=== PATIENT | male | born 1990 | race Caucasian/White ===

== ENCOUNTER 2023-10-06 20:37 | Inpatient (IN) | payer OTHER, SELFPAY ==
[2023-10-06 20:40] VITALS: BP 144/92; PULSE 81; RESP 16; TEMP 36.7; O2SAT 98; BMI 24.3
--- NOTE | 2023-10-06 20:54 | XRR_ITS ---
PROCEDURE INFORMATION: Exam: XR Chest Exam date and time: 10/06/2023 9:01 PM Age: 33 years old Clinical indication: Shortness of breath; Additional info: PT overdosed and drank 15-20 beers TECHNIQUE: Imaging protocol: Radiologic exam of the chest. Views: 1 view. COMPARISON: No relevant prior studies available. FINDINGS: Lungs: Unremarkable. No consolidation. Pleural spaces: Unremarkable. No pleural effusion. No pneumothorax. Heart/Mediastinum: Unremarkable. No cardiomegaly. Bones/joints: Unremarkable. XR/XR chest 1V portable [id number] IMPRESSION: No acute findings.
[2023-10-06 21:00] VITALS: BP 118/85; PULSE 80; RESP 19; O2SAT 97
--- NOTE | 2023-10-06 21:00 | ED.C_ITS ---
HPI - Psych 2 General: Chief Complaint: ER Hold Stated Complaint: overdose Time Seen by Provider: 10/06/23 20:47 History of Present Illness: Patient presents to the ER via [facility] with complaints of taking 20 tabs of 5 mg Valium at approximately 1800. Patient says he also drank about 15-20 beers tonight. Patient says he drinks that every day and does not usually phase him. he does state I just wanted to forget about my life being turned upside down . Patient does appear sedate but is alert oriented and can answer questions. Poison control was consulted. His parents will be writing an affidavit to get him 96-hour held they said he tried this approximately week ago as well. They would prefer him to go to [facility] if possible. Review of Systems 2 General: Reports: 10 or more systems reviewed and unremarkable except in HPI and below PFSH ED 2 PFSH: Medical History (Updated 10/06/23 @ 23:14 by Warren Avelar MD) No pertinent past medical history Surgical History (Updated 10/06/23 @ 23:14 by Warren Avelar MD) No pertinent past surgical history Physical Exam 2 Const: COMMON NORMALS: no acute distress, average body habitus, patient oriented x3, no limitations, healthy appearing, alert and well nourished HENMT: COMMON NORMALS: normocephalic, atraumatic, hearing grossly normal bilaterally, external ears normal, Normal external nose present, moist oral mucous membranes and oropharynx normal HEAD & SCALP: normocephalic and atraumatic NOSE: Normal external nose present EXTERNAL EAR: Yes external ears normal Neck/C-Spine: COMMON NORMALS: no JVD Chest: COMMONS NORMALS: normal inspection of the chest and normal palpation of entire chest wall Resp: COMMON NORMALS: normal respiratory effort, No retractions, No use of accessory muscles and clear to auscultation bilaterally AUSCULTATION: clear to auscultation bilaterally Cardio: COMMON NORMALS: no JVD, regular rate, regular rhythm, S1 normal heart sound present, S2 normal heart sound present, No gallops present (Cardio), No clicks present (Cardio), No murmurs present (Cardio) and No rub (Cardio) R ATE: regular rate RHYTHM: regular rhythm HEART SOUNDS: S1 normal heart sound present and S2 normal heart sound present GI: COMMON NORMALS: Normal to inspection, nondistended, normoactive bowel sounds present, Soft to palpation, non-tender, No hepatosplenomegaly present and no masses PALPATION: Yes Soft to palpation and Yes No hepatosplenomegaly present Neuro: COMMON NORMALS: patient oriented x3 SENSORIUM/ORIENTATION: Yes alert Course 2 Vital Signs: Vital signs: Vital Signs Temperature 98.1 F 10/06/23 20:40 Pulse Rate 69 10/07/23 07:41 Respiratory Rate 15 10/07/23 07:41 Blood Pressure 105/71 10/07/23 05:04 Pulse Oximetry 96 10/07/23 07:41 Oxygen Delivery Me thod Room Air 10/07/23 07:41 MDM - Psych Medical Decision Making Poison control was called. Patient will be worked up in a standard psychiatric fashion. We do not have any ICU beds at this facility. We will try to transfer him to [facility] in [place]. [facility] it was called they do not have any beds, we will try [facility]. When she called back with hospitalist who accepted for telemetry. They will call us back with bed assignment but it may not be tonight. After moving patients around here we decided to keep the patient here in ICU Dr. Avelar notified and agreed Differential Diagnosis Likely suicidal ideation Medical Records I reviewed the patient's medical records. Lab Data I reviewed the patient's lab results. 10/06/23 20:55 10/06/23 20:55 Radiology Impressions Chest X-Ray 10/06/23 20:54 IMPRESSION: No acute findings. Laboratory Results WBC 7.16 10^3/uL (3.29-11.43) 10/06/23 20:55 RBC 5.02 10^6/uL (3.85-5.65) 10/06/23 20:55 Hgb 16.30 g/dL (11.27-16.99) 10/06/23 20:55 Hct 45.7 % (37-53) 10/06/23 20:55 MCV 91.0 fl (82-101) 10/06/23 20:55 MCH 32.5 pg (27-33) 10/06/23 20:55 MCHC 35.7 g/dL (30-55) 10/06/23 20:55 RDW 12.2 % (12.1-15.1) 10/06/23 20:55 Plt Count 232 10^3/cmm (157-399) 10/06/23 20:55 MPV 10.7 fL (7.4-10.4) H 10/06/23 20:55 Neut % (Auto) 58.8 % 10/06/23 20:55 Lymph % (Auto) 33.8 % 10/06/23 20:55 [place] % (Auto) 4.5 % 10/06/23 20:55 Eos % (Auto) 2.1 % 10/06/23 20:55 Baso % (Auto) 0.7 % 10/06/23 20:55 Neut # (Auto) 4.21 10^3/uL (1.8-7.7) 10/06/23 20:55 Lymph # (Auto) 2.4 10^3/uL (0.8-4.8) 10/06/23 20:55 [place] # (Auto) 0.3 10^3/uL (0.2-0.9) 10/06/23 20:55 Eos # (Auto) 0.2 10^3/uL (0.0-0.8) 10/06/23 20:55 Baso # (Auto) 0.1 10^3/uL (0.0-0.1) 10/06/23 20: Nucleated RBC % (auto) 0 % 10/06/23 20: Nucleated RBCs # 0.0 /100WBC 10/06/23 20:55 PT 13.20 SECONDS (12.1-14.9) 10/06/23 20:55 INR 0.98 (0.8-1.2) 10/06/23 20:55 Sodium 141 mmol/L (136-145) 10/06/23 20:55 Potassium 3.9 mmol/L (3.5-5.1) 10/06/23 20:55 Chloride 104 mmol/L (98-107) 10/06/23 20:55 Carbon Dioxide 24 mmol/L (22-29) 10/06/23 20:55 Anion Gap 16.9 (5-19) 10/06/23 20:55 BUN 13 mg/dL (6-20) 10/06/23 20:55 Creatinine 0.8 mg/dL (0.7-1.2) 10/06/23 20:55 GFR Calculation 112.8 mL/min (90-130) 10/06/23 20:55 Glucose 83 mg/dL (65-115) 10/06/23 20:55 Calculated Osmolality 291 mOsm/kg (285-295) 10/06/23 20:55 Calcium 8.8 mg/dL (8.5-10.5) 10/06/23 20:55 Total Bilirubin 0.5 mg/dL (0.15-1.2) 10/06/23 20:55 AST 22 U/L (0-40) 10/06/23 20:55 ALT 46 U/L (0-41) H 10/06/23 20:55 Alkaline Phosphatase 115 U/L (40-130) 10/06/23 20:55 Total Protein 7.1 g/dL (6.6-8.7) 10/06/23 20: Albumin 4.5 g/dL (3.5-5.2) 10/06/23 20: Globulin 2.6 g/dL (1.3-4.6) 10/06/23 20:55 TSH 2.03 uIU/mL (0.27-4.20) 10/06/23 20:55 Urine Color Light yellow (Yellow) 10/06/23 20:55 Urine Appearance Clear (CLEAR) 10/06/23 20:55 Urine pH 5 (5-7) 10/06/23 20:55 Ur Specific [place] 1.010 (1.005-1.030) 10/06/23 20:55 Urine Protein Neg (Negative) 10/06/23 20:55 Urine Glucose (UA) Norm (Normal) 10/06/23 20:55 Urine Ketones Negative (Negative) 10/06/23 20:55 Urine Blood Neg (Negative) 10/06/23 20:55 Urine Nitrate Negative (Negative) 10/06/23 20:55 Urine Bilirubin Neg (Negative) 10/06/23 20: Urine Urobilinogen Norm mg/dL (Negative) 10/06/23 20:55 Ur Leukocyte Esterase Negative (Negative) 10/06/23 20:55 Salicylates < 0.3 mg/dL (3-10) L 10/06/23 20:55 Urine Opiates Screen Negative ng/mL (Negative) 10/06/23 20:55 Acetaminophen < 5.0 ug/mL (10-30) L 10/06/23 20:55 Ur Barbiturates Screen Negative ng/mL (Negative) 10/06/23 20:55 Ur Phencyclidine Scrn Negative ng/mL (Negative) 10/06/23 20:55 Ur Amphetamines Screen Negative ng/mL (Negative) 10/06/23 20:55 U Benzodiazepines Scrn Positive ng/mL (Negative) H 10/06/23 20:55 Urine Cocaine Screen Negative ng/mL (Negative) 10/06/23 20:55 U Marijuana (THC) Screen Negative ng/mL (Negative) 10/06/23 20:55 Ethyl Alcohol 62 mg/dL (0-10) H 10/06/23 20:55 All radiology interpretation(s) finalized by discharge Discharge Plan Discharge Patient Disposition: Xfer Short-Term Hosp Clinical Impression: Benzodiazepine (tranquilizer) overdose, Suicidal ideation Condition: Stable Coding Level of Care Code ED [employer]
--- NOTE | 2023-10-06 21:04 | PC.NURSE ---
Dr Smith spoke with poison control regarding patient status.
[2023-10-06 21:06] LABS: Add Urine Microscopic? NO; Charge for UA Resulting for Rev
[2023-10-06 21:07] LABS: Basophils # 0.1 10^3/uL (0.0-0.1); Basophils % 0.7 %; Eosinophils # 0.2 10^3/uL (0.0-0.8); Eosinophils % 2.1 %; Hematocrit 45.7 % (37-53); Lymphocytes # 2.4 10^3/uL (0.8-4.8); Lymphocytes % 33.8 %; Mean Corpuscular HGB Conc 35.7 g/dL (30-55); Mean Corpuscular Hemoglobin 32.5 pg (27-33); Mean Platelet Volume 10.7 fL (7.4-10.4); Monocytes # 0.3 10^3/uL (0.2-0.9); Monocytes % 4.5 %; Neutrophils # 4.21 10^3/uL (1.8-7.7); Neutrophils % 58.8 %; Nucleated Red Blood Cells % 0 %; Platelet Count 232 10^3/cmm (157-399); Red Blood Count 5.02 10^6/uL (3.85-5.65); Red Cell Distribution Width 12.2 % (12.1-15.1); White Blood Count 7.16 10^3/uL (3.29-11.43)
[2023-10-06 21:15] LABS: Bilirubin Urine Neg (Negative); Blood Urine Neg (Negative); Glucose Urine UA Norm (Normal); INR 0.98 (0.8-1.2); Ketones Urine Negative (Negative); Leukocyte Esterase Urine Negative (Negative); Nitrate Urine Negative (Negative); Protein Urine Neg (Negative); Urine Appearance Clear (CLEAR); Urine Color Light yellow (Yellow); Urobilinogen Urine Norm (Negative); pH Urine 5 (5-7)
[2023-10-06 21:22] LABS: Amphetamines Screen Urine Negative (Negative); Barbiturates Screen Urine Negative (Negative); Benzodiazepines Screen Urine Positive (Negative); Cocaine Screen Urine Negative (Negative); Opiate Screen Urine Negative (Negative); PCP Screen Urine Negative (Negative); THC Screen Urine Negative (Negative)
[2023-10-06 21:31] LABS: Alanine Aminotransferase 46 U/L (0-41); Albumin Level 4.5 g/dL (3.5-5.2); Alcohol Level 62 mg/dL (0-10); Alkaline Phosphatase 115 U/L (40-130); Anion Gap 16.9 (5-19); Aspartate Amino Transferase 22 U/L (0-40); Blood Urea Nitrogen 13 mg/dL (6-20); Calcium 8.8 mg/dL (8.5-10.5); Carbon Dioxide 24 mmol/L (22-29); Chloride 104 mmol/L (98-107); Creatinine Clr Calc Pharmacy 141.2542; Globulin 2.6 g/dL (1.3-4.6); Glomerular Filtration Rate 112.8 mL/min (90-130); Glucose 83 mg/dL (65-115); Osmolality Calculated 291 mOsm/kg (285-295); Potassium 3.9 mmol/L (3.5-5.1); Sodium 141 mmol/L (136-145); Thyroid Stimulating Hormone 2.03 uIU/mL (0.27-4.20); Total Bilirubin 0.5 mg/dL (0.15-1.2); Total Protein 7.1 g/dL (6.6-8.7)
[2023-10-06 21:32] LABS: Acetaminophen < 5.0 ug/mL (10-30); Salicylate < 0.3 mg/dL (3-10)
[2023-10-06 22:30] VITALS: BP 135/77; PULSE 84; O2SAT 19
[2023-10-06 22:45] VITALS: BP 131/65; PULSE 80; RESP 22; O2SAT 96
[2023-10-06 22:52] LABS: ABG PH Result 7.36 (7.35-7.45); Alveolar-Arterial Oxygen Gradi 2.6 mmHg (5-10); Arterial Blood Gas Hematocrit 50.5 % (42-52); Base Excess ABG -0.5 mmol/L (-2.0-2.0); Blood Gas Sample Site Brachial, left; Blood Gas Sample Type Arterial; Carboxyhemoglobin 1.1 %THgb (0.4-20.1); HCO3 ABG 25.4 mmol/L (22-26); HGB O2 Sat 94.1 % (95-100); Ionized Calcium Level - ABG 1.2 mmol/L (1.1-1.4); Methemoglobin 0.6 % (0.4-1.5); Oxygen Saturation ABG 95.7; PO2 ABG 74.6 mmHg (80.0-100.0); PO2 FiO2 Ratio Arterial Blood 0; Potassium Level - ABG 3.8 mmol/L (3.5-5.0); Total Hemoglobin 16.5 g/dL (14-18)
--- NOTE | 2023-10-06 22:57 | PC.NURSE ---
Pt was ok with me speaking to his mom and dad. Parents were informed that pt could not have visitors until tomorrow during normal NPU hours. Family is still insisting that pt is transferred to [facility]. family was informed that no beds are available at this time. family was also informed that pt would be going to ICU here and that it is a locked unit and he would have a PSA sit with him there also. they were also informed that the pt would be seeing a psychiatrist while here.
[2023-10-06 23:00] VITALS: PULSE 79; RESP 20; O2SAT 94
--- NOTE | 2023-10-06 23:08 | PC.NURSE ---
Spoke with Karen from Poison Control, and gave her update on patient's vitals, toxicology, and current status. Karen said she would call back later for another update.
--- NOTE | 2023-10-06 23:10 | P.HP_ITS ---
Providers/Chief Complaint 2 Primary Care Provider: Yoshi Sims DO Chief Complaint: overdose History of Present Illness Malik Lacy is a 33 year old male with history of depression, alcohol abuse presented to the hospital after taking 15 to 20 tablets of Valium 5 mg, patient is stating that there were a lot of people at home including his family and cousins, he was under a lot of stress and wanted to decrease his anxiety with taking Valium he is denying suicidal ideation at the time of evaluation however his parents spoke with the ER physician and told him that patient has been endorsing suicidal ideation for last 2 weeks, patient is stating that he is under a lot of stress which is because of his personal issues. He works full- time, does not smoke endorsing to drinking excessively stating that he could drink beer 10-20 night and then still go to work in the morning, sometimes he will drink 30 beers a day. He is stating it depends upon the gathering, company and level of stress. He denies hypertension cardiac history. At the time of evaluation he is going to the ICU for close supervision Currently he is hemodynamically stable with sinus rhythm blood pressure stable no QT prolongation He is awake and alert able to state above-mentioned HPI He is adamant that he is not suicidal he just wanted to add his stress in life by taking Valium. His alcohol level is 62, Dr. Lacy consulted Patient repeatedly stating that he is not alcoholic he can just drink 10-20 beers and still functioning appropriately Review of Systems 2 Const: Denies: fever(s) Eyes: Denies: change in vision ENMT: Denies: throat pain Card: Denies: chest pain Resp: Denies: dyspnea GI: Denies: abdominal pain : Denies: flank pain Musc: Denies: neck pain Skin/Breast: Denies: rash Neuro: Denies: headache(s) Psych: Reports: anxiety Medications/Allergies Home Medications Medication Instructions Recorded Confirmed Last Taken Type budesonide 90 mcg/actuation breath 2 inh inhalation BID 03/05/22 03/05/22 Unknown History activated powder inhaler (Pulmicort Flexhaler) diazepam 5 mg tablet 5 mg PO QAM PRN anxiety #30 tabs 09/26/23 09/26/23 Unknown Rx escitalopram oxalate 20 mg tablet 20 mg PO DAILY anxiety #30 tabs 09/26/23 09/26/23 Unknown Rx Allergies Allergy/AdvReac Type Severity Reaction Status Date / Time No Known Allergies Allergy Verified 10/06/23 20:50 PFSH Acute 2 PFSH: Medical History (Updated 10/06/23 @ 23:14 by Warren Avelar MD) No pertinent past medical history Surgical History (Updated 10/06/23 @ 23:14 by Warren Avelar MD) No pertinent past surgical history Vitals/I&O/Wt Last Vital Signs Temp 98.1 F 10/06/23 20:40 Pulse 79 10/06/23 23:00 Resp 20 H 10/06/23 23:00 BP 131/65 10/06/23 22:45 Pulse Ox 94 10/06/23 23:00 O2 Del Method Room Air 10/06/23 23:00 Weight last 48 hrs Weight 77.111 kg Physical Exam 2 Narrative: Patient is awake and alert GCS 15 Nonfocal neuroexam Erythematous conjunctiva Nonfocal neuroexam GCS 15 Hemodynamically stable Pleasant 43-year-old Good muscle bulk Thin lean male Data 10/06/23 20:55 10/06/23 20:55 A&P Assessment and plan (1) Anxiety: (2) Suicidal ideation: (3) Benzodiazepine (tranquilizer) overdose: Qualifiers: Encounter type: initial encounter Injury intent: intentional self-harm Qualified Code(s): T42.4X2A - Poisoning by benzodiazepines, intentional self- harm, initial encounter (4) Acute alcohol intoxication: Plan Overdose on Valium 15 to 20 tablets of 5 mg Valium Monitor in ICU Watch for QT prolongation Monitor for arrhythmia Keep electrolytes and check Check CPK Dr. Lacy consulted and notified Full code Cardiac diet Gentle IV fluid hydration Alcohol intoxication Will start CIWA protocol Full code Cardiac diet DVT prophylaxis Lovenox Attestations 2 Medical Necessity Statement*: More than 2 midnights anticipated for alcohol desiccation, suicidal, Diagnoses Anxiety F41.9 Suicidal ideation R45.851 Benzodiazepine (tranquilizer) overdose T42.4X2A Encounter type: initial encounter Injury intent: intentional self-harm Acute alcohol intoxication F10.929
--- NOTE | 2023-10-06 23:23 | PC.NURSE ---
[facility] Pt served with [facility] by this RN and security. Pt alert and oriented with some slurred speech. Pt mother and step father at bedside. Pt mother some what secretive in giving information to staff, pulling physician and nurses out of room to speak to them. Pt mother requested pt to be transferred to [facility] due to a recommendation from pt PCP. Upon serving pt with [facility], pt requested to stay at [facility] to be closer to home. Physician notified.
[2023-10-06 23:40] VITALS: BP 118/80; PULSE 80; O2SAT 94
[2023-10-07] VITALS (95 sets, daily range): BP systolic 83–138; BP diastolic 59–86; PULSE 54–88; RESP 9–26; TEMP 36.4–37.2; O2SAT 92–100; BMI 24.2
[2023-10-07] MEDS: enoxaparin 40 mg/0.4 mL Syringe SUBCUT (05:32)
[2023-10-07] MEDS: sodium chloride 0.9% 1,000 ML 75 ML IV (05:34)
[2023-10-07] MEDS: folic acid 1 mg Tablet PO (08:13)
[2023-10-07] MEDS: multivitamin therapeutic Tablet 1 TAB PO (08:13)
[2023-10-07] MEDS: thiamine 100 mg Tablet PO (08:13)
--- NOTE | 2023-10-07 14:21 | P.PN_ITS ---
Subjective 2 Subjective: - Patient was seen this morning ? He denies any active suicidal ideation, denies any suicidal thoughts, does report increased anxiety ? He denies taking diazepam pills in attempt to kill himself, he is not sure how many pills he took ? Denies any prior suicide attempts ? Denies any homicidal ideation, ? When asked him if he drink alcohol, he tells me that he typically has 6-12 beers potentially on a daily basis his last drink of alcohol was yesterday he had 6 beers, denies having a problem with alcohol denies blacking out denies a history of alcohol withdrawal Vitals/I&O/Wt Last Vital Signs Temp 98.1 F 10/06/23 20:40 Pulse 69 10/07/23 07:41 Resp 15 10/07/23 07:41 BP 105/71 10/07/23 05:04 Pulse Ox 96 10/07/23 07:41 O2 Del Method Room Air 10/07/23 07:41 10/06/23 10/07/23 10/07/23 22:59 06:59 14:59 Intake Total 0 / 0 Output Total 0 / 0 Balance 0 / 0 Weight last 48 hrs Weight 76.5 kg Weight 77.111 kg Physical Exam 2 Const: COMMON NORMALS: no acute distress and patient oriented x3 Resp: COMMON NORMALS: normal respiratory effort, No retractions, No use of accessory muscles and clear to auscultation bilaterally AUSCULTATION: clear to auscultation bilaterally Cardio: COMMON NORMALS: regular rate, regular rhythm, S1 normal heart sound present and S2 normal heart sound present RATE: regular rate RHYTHM: r egular rhythm HEART SOUNDS: S1 normal heart sound present and S2 normal heart sound present GI: COMMON NORMALS: Normal to inspection, nondistended, normoactive bowel sounds present and non-tender Extremity: COMMON NORMALS: no pedal edema Neuro: COMMON NORMALS: patient oriented x3, CN's II-XII intact bilaterally, moves all extremities and no focal motor deficits Psych: COMMON NORMALS: mental status grossly normal Data 10/06/23 20:55 10/06/23 20:55 A&P Assessment and plan (1) Anxiety: (2) Suicidal ideation: (3) Benzodiazepine (tranquilizer) overdose: Qualifiers: Encounter type: initial encounter Injury intent: intentional self-harm Qualified Code(s): T42.4X2A - Poisoning by benzodiazepines, intentional self- harm, initial encounter (4) Acute alcohol intoxication: Plan Overdose on Valium 15 to 20 tablets of 5 mg Valium Monitor in ICU Watch for QT prolongation Monitor for arrhythmia Keep electrolytes and check Check CPK Dr. Lacy consulted and notified Full code Cardiac diet Gentle IV fluid hydration Alcohol intoxication Will start CIWA protocol Full code Cardiac diet DVT prophylaxis Lovenox Plan for today monitor in ICU, monitor electrolytes, monitor mentation, plan on moving to neuropsychiatric unit tomorrow, spoke to Dr. Lacy, he does accept Attestations 2 Medical Necessity Statement*: Patient requires hospitalization for overdose of Valium, Diagnoses Anxiety F41.9 Suicidal ideation R45.851 Benzodiazepine (tranquilizer) overdose T42.4X2A Encounter type: initial encounter Injury intent: intentional self-harm Acute alcohol intoxication F10.929
--- NOTE | 2023-10-07 15:41 | PC.NURSE ---
patients belonging sent with mother at this time per her request to be cleaned patient agreed shirt and jeans in clothing bag
[2023-10-07] MEDS: ALPRAZolam 0.5 mg Tablet PO (20:33)
--- NOTE | 2023-10-07 20:35 | PC.NURSE ---
Spoke to Dr. Avelar about patient requesting something to help with sleep. Given orders for a one time dose of Xanax 0.5mg PO.
[2023-10-08] VITALS (30 sets, daily range): BP systolic 93–137; BP diastolic 57–78; PULSE 17–94; RESP 12–80; TEMP 36.6–37.1; O2SAT 92–98; BMI 26.4
[2023-10-08 04:53] LABS: Basophils % 0.5 %; Eosinophils # 0.2 10^3/uL (0.0-0.8); Eosinophils % 2.9 %; Hematocrit 43.7 % (37-53); Lymphocytes # 2.3 10^3/uL (0.8-4.8); Lymphocytes % 38.9 %; Mean Corpuscular Hemoglobin 32.6 pg (27-33); Mean Platelet Volume 10.7 fL (7.4-10.4); Monocytes # 0.3 10^3/uL (0.2-0.9); Monocytes % 4.4 %; Neutrophils # 3.14 10^3/uL (1.8-7.7); Neutrophils % 53.1 %; Nucleated Red Blood Cells % 0 %; Platelet Count 208 10^3/cmm (157-399); Red Cell Distribution Width 12.1 % (12.1-15.1); White Blood Count 5.91 10^3/uL (3.29-11.43)
[2023-10-08] MEDS: enoxaparin 40 mg/0.4 mL Syringe SUBCUT (05:03)
[2023-10-08 05:25] LABS: Alanine Aminotransferase 34 U/L (0-41); Albumin Level 3.8 g/dL (3.5-5.2); Alkaline Phosphatase 97 U/L (40-130); Anion Gap 16.4 (5-19); Aspartate Amino Transferase 19 U/L (0-40); Blood Urea Nitrogen 11 mg/dL (6-20); Calcium 8.5 mg/dL (8.5-10.5); Carbon Dioxide 24 mmol/L (22-29); Chloride 103 mmol/L (98-107); Globulin 2.3 g/dL (1.3-4.6); Glomerular Filtration Rate 98.4 mL/min (90-130); Glucose 82 mg/dL (65-115); Magnesium 2.2 mg/dL (1.7-2.3); Osmolality Calculated 288 mOsm/kg (285-295); Phosphorus 4.3 mg/dL (2.5-4.5); Potassium 3.4 mmol/L (3.5-5.1); Sodium 140 mmol/L (136-145); Total Bilirubin 1.1 mg/dL (0.15-1.2); Total Protein 6.1 g/dL (6.6-8.7)
[2023-10-08] MEDS: multivitamin therapeutic Tablet 1 TAB PO (09:28)
[2023-10-08] MEDS: thiamine 100 mg Tablet PO (09:28)
[2023-10-08] MEDS: folic acid 1 mg Tablet PO (09:28)
--- NOTE | 2023-10-08 09:51 | PC.NURSE ---
Report called to NPU, nurse will call when ready to receive patient.
--- NOTE | 2023-10-08 10:46 | PC.NURSE ---
Patient transferred to NPU, AOX4, RA, SR, see charted vitals, Patient in Green scrubs, IV removed. Belongings at home with his mother.
--- NOTE | 2023-10-08 10:59 | P.PN_ITS ---
Subjective 2 Subjective: Patient was seen this morning, he is alert oriented x 3, following all commands, denies any chest pain, no palpitations, has no complaints, Vitals/I&O/Wt Last Vital Signs Temp 98.8 F 10/08/23 07:25 Pulse 90 10/08/23 09:10 Resp 20 H 10/08/23 09:10 BP 130/76 10/08/23 09:10 Pulse Ox 98 10/08/23 09:10 O2 Del Method Room Air 10/08/23 09:10 10/07/23 10/08/23 10/08/23 22:59 06:59 14:59 Intake Total 1240 / 1240 120 / 1360 Balance 1240 / 1240 120 / 1360 Weight last 48 hrs Weight 83.546 kg Weight 76.5 kg Weight 77.111 kg Physical Exam 2 Const: COMMON NORMALS: no acute distress and patient oriented x3 Resp: COMMON NORMALS: normal respiratory effort, No retractions, No use of accessory muscles and clear to auscultation bilaterally AUSCULTATION: clear to auscultation bilaterally Cardio: COMMON NORMALS: regular rate, regular rhythm, S1 normal heart sound present and S2 normal heart sound present RATE: regular rate RHYTHM: r egular rhythm HEART SOUNDS: S1 normal heart sound present and S2 normal heart sound present GI: COMMON NORMALS: Normal to inspection, nondistended, normoactive bowel sounds present and non-tender Extremity: COMMON NORMALS: no pedal edema Neuro: COMMON NORMALS: patient oriented x3 Psych: COMMON NORMALS: mental status grossly normal Data 10/08/23 04:23 10/08/23 04:23 A&P Assessment and plan (1) Anxiety: (2) Suicidal ideation: (3) Benzodiazepine (tranquilizer) overdose: Qualifiers: Encounter type: initial encounter Injury intent: intentional self-harm Qualified Code(s): T42.4X2A - Poisoning by benzodiazepines, intentional self- harm, initial encounter (4) Acute alcohol intoxication: Plan Overdose on Valium, resolved 15 to 20 tablets of 5 mg Valium move to NPU Cardiac diet ciwa Full code Cardiac diet Plan for today will move patient to neuropsychiatric unit, spoke to Dr. Lacy Attestations 2 Medical Necessity Statement*: Patient will be transferred to neuropsychiatric unit for overdose on Valium, suicidal ideation Diagnoses Anxiety F41.9 Suicidal ideation R45.851 Benzodiazepine (tranquilizer) overdose T42.4X2A Encounter type: initial encounter Injury intent: intentional self-harm Acute alcohol intoxication F10.929
--- NOTE | 2023-10-08 13:06 | P.NPUHP_ITS ---
Providers/Chief Complaint 2 Admitting Physician: Warren Avelar MD Primary Care Provider: Yoshi Sims DO Chief Complaint: overdose HPI NPU History of Present Illness Malik Lacy is a 33 year old male who presented to the emergency department with the following report: Chief Complaint: ER Hold Stated Complaint: overdose Time Seen by Provider: 10/06/23 20:47 History of Present Illness: Patient presents to the ER via [facility] with complaints of taking 20 tabs of 5 mg Valium at approximately 1800. Patient says he also drank about 15-20 beers tonight. Patient says he drinks that every day and does not usually phase him. he does state I just wanted to forget about my life being turned upside down . Patient does appear sedate but is alert oriented and can answer questions. Poison control was consulted. His parents will be writing an affidavit to get him 96-hour held they said he tried this approximately week ago as well. They would prefer him to go to [facility] if possible. He was admitted to the ICU for definitive treatment of his intentional overdose. He was monitored in the ICU and medically cleared and transferred to the neuropsychiatric unit for definitive treatment of suicide attempt and evaluate for overarching mental health problems. He presents today as a questionable historian as he is very interested in being discharged soon as possible and appeared in general to be downplaying the events of the past week or so from the standpoint of possible suicide attempts and appearing to downplay the tenuous nature of his marriage as a risk factor for his behaviors. He presented today reporting: CHIEF COMPLAINT Patient reports difficulty sleeping, loss of appetite, and significant weight loss. He also mentions experiencing a state of shock and emotional distress due to recent personal events. HISTORY OF THE PRESENT COMPLAINT Malik, the patient, has been on psychiatric medication, specifically Lexapro and Diazepam, for the past couple of years. These medications were prescribed by his primary care doctor, Yoshi Hinojosa. Malik's current dosage is 20mg of Lexapro and 5mg of Diazepam three times a day. Malik has experienced several traumatic events in his life, including the loss of his best friend and cousin in a tragic accident in 2018 and the of his grandfather in 2019. These events have caused significant emotional turmoil, leading him to seek help. In 2020, he started taking medication prescribed by his doctor to help with his anxiety. Earlier this year, Malik's admitted to having an affair, which further exacerbated his emotional distress. He reported having trouble sleeping, losing weight, and experiencing a loss of appetite since this revelation. He also mentioned that he had been consuming more alcohol than usual and had taken a higher dose of Valium in an attempt to sleep. Malik denied any suicidal ideation or attempts, emphasizing his deep ranjana and commitment to his family. He reported that he had been seeking professional help, with appointments made for individual therapy. He also mentioned receiving infusions to help with his physical health. Despite the emotional turmoil, Malik described his current mood as good and denied any thoughts of self-harm or harm to others. He also denied experiencing any paranoia or hallucinations. Malik also mentioned that he had stopped taking his escitalopram medication since his admission to the psychiatric [facility] and reported feeling significantly better without it. He expressed a desire to leave the psychiatric [facility] and denied any intention of self-harm. Malik also shared an incident where he took his grandfather's ashes to a specific location as per his grandfather's wishes. During this event, he expressed a longing to be with his grandfather, which he clarified was not a suicide attempt but a deep emotional response to his grandfather's passing. Malik expressed a willingness to have an open and honest dialogue about his situation and looked forward to further discussions about his condition and treatment. MENTAL HEALTH HISTORY Patient has been on psychiatric medication ( Negative Lexapro, Diazepam) for a couple of years, prescribed by his primary care doctor who has extended his studies in mental health. Patient has been on and off these medications, with dosage adjustments over time. He reports having been on different medications in the past due to side effects. He has been in therapy since high school and recently started therapy again due to personal issues. SOCIAL HISTORY Patient is a man with two children. He has a history of alcohol consumption, usually a few beers daily, but reports not drinking to intoxication. He uses tobacco products daily. He has a history of cannabis use in high school but reports it made him sick and he has not used it since. He denies use of cocaine, methamphetamines, opiates, mushrooms, LSD, or any other illicit substances. He has no history of DUI or DWI. He is very involved in his scientologist and has a strong Rastafarian ranjana. 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 Meds NPU Home Medications Medication Instructions Recorded Confirmed Last Taken Type diazepam 5 mg tablet 5 mg PO QAM PRN anxiety #30 tabs 09/26/23 10/07/23 Unknown Rx escitalopram oxalate 20 mg tablet 20 mg PO DAILY anxiety #30 tabs 09/26/23 10/07/23 Unknown Rx Allergies Allergy/AdvReac Type Severity Reaction Status Date / Time No Known Allergies Allergy Verified 10/06/23 20:50 PFSH NPU 2 PFSH: Medical History (Updated 10/09/23 @ 06:40 by Daryl Lacy MD) No pertinent past medical history Surgical History (Updated 10/06/23 @ 23:14 by Warren Avelar MD) No pertinent past surgical history Mental Status Exam 2 MSE Comments: This is a slender white male in hospital scrubs with adequate grooming and eye contact. No abnormal movements except for psychomotor retardation. Cooperative with exam in mild to moderate distress. Speech was slightly decreased rate and volume. Mood described as depressed, affect subdued. Able to tolerate thought process organized. Thought content: He reports feeling good today despite the circumstances. However, he admits to having felt suicidal in the past and having a longing to be with his grandfather. Patient denied suicidal or homicidal ideation, there were no delusions reported or noted, he denied any auditory or visual hallucinations. Attention and concentration appear intact and memory appears reliable but none were formally tested. He is alert and oriented x 3. Insight and judgment are limited and impulse control is impaired. Vitals/I&O/Wt Last Vital Signs Temp 97.8 F 10/08/23 10:45 Pulse 80 10/08/23 10:45 Resp 17 10/08/23 10:45 BP 111/59 10/08/23 10:45 Pulse Ox 98 10/08/23 10:45 O2 Del Method Room Air 10/08/23 11:00 10/07/23 10/08/23 10/08/23 22:59 06:59 14:59 Intake Total 1240 / 1240 120 / 1360 Balance 1240 / 1240 120 / 1360 Weight last 48 hrs Weight 83.546 kg Weight 76.5 kg Weight 77.111 kg Data NPU 10/08/23 04:23 10/08/23 04:23 A&P Assessment and plan (1) Acute alcohol intoxication: (2) Suicidal ideation: (3) Suicide attempt: (4) Marital/partner relational problem: (5) Major depressive disorder, recurrent: (6) Anxiety: Plan This is a 33-year-old white male with a previous history of some mental health challenges going back to his parents divorce with question of concerns with his alcohol consumption and recent intentional ingestion which he denies a suicide attempt that led to medical clearance in the ICU who is experiencing significant emotional distress due to recent personal events, including marital issues and the of close family members. He has a history of mental health treatment and is currently on psychiatric medication. He is seeking help and is open to therapy. He has shown signs of suicidal ideation in the past and has taken a large amount of Valium, which is concerning and his recounting of the events in the past week that led to him being placed on a 96-hour hold are in vance contrast to the reports. 1. Continue current medication. Advised patient that continuation of Lexapro or some other antidepressant is recommended and that it appears that given his overdose and high alcohol consumption that Valium is a bad idea for anxiety treatment. 2. Continue every 15 minute checks for safety. 3. Encourage individual, group and milieu therapy. 4. Encourage sober living treatment after discharge at the highest level of care to which she is willing to commit. 5. Obtain collateral information. 6. After conversation with patient and preliminary review of the 96-hour hold paperwork for concerns about patient being dishonest about recent events make continuing the 96-hour hold and considering a 21-day hold recurrent treatment considerations. Patient told this fha underwriter about taking his grandfather's ashes into the [place] but he left out the part about having a gun that had to be taken from him and other likely intentional omissions. Involuntary Hold Information 2 96 Hour Hold: 96 Hour Involuntary Admission: Yes 96 Hour Hold Ending Date: 10/10/23 96 Hour Hold Ending Time: 21:00 Attestations NPU 2 Medical Necessity Statement*: Inpatient hospitalization is medically necessary and the clinically appropriate intervention at this time. We will monitor medications and make changes as indicated. He will be in the hospital over 2 midnights. Likely length of stay 6 to 8 days. Coding Level of Care Code Acute Code for [facility] Fwd Diagnoses Acute alcohol intoxication F10.929 Suicidal ideation R45.851 Suicide attempt T14.91XA Marital/partner relational problem Z63.0 Major depressive disorder, recurrent F33.9 Anxiety F41.9
[2023-10-08] MEDS: hyDROXYzine 25 mg Capsule 50 MG PO (20:45)
[2023-10-09 06:00] VITALS: BP 100/63; PULSE 63; RESP 15; O2SAT 98; BMI 26.4
[2023-10-09] MEDS: folic acid 1 mg Tablet PO (08:09)
[2023-10-09] MEDS: escitalopram 10 mg Tablet 20 MG PO (08:09)
[2023-10-09] MEDS: thiamine 100 mg Tablet PO (08:09)
[2023-10-09] MEDS: multivitamin therapeutic Tablet 1 TAB PO (08:09)
--- NOTE | 2023-10-09 09:37 | PC.NURSE ---
Patient states that he is fine. Patient denies anxiety, depression, SI, HI, AVH. Patient is cooperative during assessment, but seems somewhat resistant to care
--- NOTE | 2023-10-09 09:37 | PC.NURSE ---
Patient states that he is fine. Patient denies anxiety, depression, SI, HI, AVH. Patient is cooperative during assessment, but seems somewhat resistant to care, guarded.
--- NOTE | 2023-10-09 10:50 | W.PM.NPUPNS ---
Subjective NPU Subjective: Patient presented today reporting that he was ready to be discharged. We had a very lengthy discussion about the reports he gave at admission and how they were very contradictory to the reports that were given by multiple sources. He acknowledges that the report about him having a gun when he was in the [place] with his grandfather's ashes was accurate and that he did not report the story that way because it was embarrassing. We had discussed at length the importance of transparency on his part for us to feel comfortable with him discharging given that he has had essentially 2 significant suicidal events in 1 week. Additionally we discussed the fact that we did not believe his story about the second event. Not only had a left out the fact that prior to the intentional ingestion/overdose that he had spoken to the individual that his had been cheating with, he took his son over to someone else's house so that he would not have any responsibilities and then he went in his truck up 1 son he will prior to drinking up to 20 beers and taking 2) 5 mg Valium tablets if not more. He had reported that the purpose of the pills was to sleep but he took these pills somewhere out on his property in his truck. He could not explain why if his great desire was to sleep that those pills were not taken while getting into a bed. He continues to endorse that not only do medications not making better, that he believes the medications or the cause of these suicidal events and suicidal thoughts he had a couple years ago that he never shared but would not deny today. Which goes against his report that he has maintained that he has never had suicidal thoughts. Mental Status Exam MSE Comments: This is a slender white male in hospital scrubs with adequate grooming and eye contact. No abnormal movements except for psychomotor retardation. Cooperative with exam in mild to moderate distress. Speech was slightly decreased rate and volume. Mood described as depressed, affect subdued. Able to tolerate thought process organized. Thought content: He reports feeling good today despite the circumstances. However, he admits to having felt suicidal in the past and having a longing to be with his grandfather. Patient denied suicidal or homicidal ideation, there were no delusions reported or noted, he denied any auditory or visual hallucinations. Attention and concentration appear intact and memory appears reliable but none were formally tested. He is alert and oriented x 3. Insight and judgment are limited and impulse control is impaired. Vitals/I&O/Wt Last Vital Signs Temp 98.1 F 10/08/23 20:16 Pulse 63 10/09/23 06:00 Resp 15 10/09/23 06:00 BP 100/63 10/09/23 06:00 Pulse Ox 98 10/09/23 06:00 O2 Del Method Room Air 10/09/23 06:00 Weight last 48 hrs Weight 83.546 kg Weight 83.546 kg Data NPU 10/08/23 04:23 10/08/23 04:23 A&P Assessment and plan (1) Acute alcohol intoxication: (2) Suicidal ideation: (3) Suicide attempt: (4) Marital/partner relational problem: (5) Major depressive disorder, recurrent: (6) Anxiety: Plan This is a 33-year-old white male with a previous history of some mental health challenges going back to his parents divorce with question of concerns with his alcohol consumption and recent intentional ingestion which he denies a suicide attempt that led to medical clearance in the ICU who is experiencing significant emotional distress due to recent personal events, including marital issues and the of close family members. He has a history of mental health treatment and is currently on psychiatric medication. He is seeking help and is open to therapy. He has shown signs of suicidal ideation in the past and has taken a large amount of Valium, which is concerning and his recounting of the events in the past week that led to him being placed on a 96-hour hold are in vance contrast to the reports. 1. Continue current medication. Advised patient that continuation of Lexapro or some other antidepressant is recommended and that it appears that given his overdose and high alcohol consumption that Valium is a bad idea for anxiety treatment. 2. Continue every 15 minute checks for safety. 3. Encourage individual, group and milieu therapy. 4. Encourage sober living treatment after discharge at the highest level of care to which she is willing to commit. 5. Obtain collateral information. 6. After conversation with patient and preliminary review of the 96-hour hold paperwork for concerns about patient being dishonest about recent events make continuing the 96-hour hold and considering a 21-day hold recurrent treatment considerations. Patient told this sign writer letterer or painter about taking his grandfather's ashes into the [place] but he left out the part about having a gun that had to be taken from him and other likely intentional omissions. Involuntary Hold Information 96 Hour Hold: 96 Hour Involuntary Admission: Yes 96 Hour Hold Ending Date: 10/10/23 96 Hour Hold Ending Time: 21:00 Attestations NPU Medical Necessity Statement*: Inpatient hospitalization is medically necessary and the clinically appropriate intervention at this time. We will monitor medications and make changes as indicated. He will be in the hospital over 2 midnights. Likely length of stay 6 to 8 days. Coding Level of Care Code Acute Code for [facility] Fwd Diagnoses Acute alcohol intoxication F10.929 Suicidal ideation R45.851 Suicide attempt T14.91XA Marital/partner relational problem Z63.0 Major depressive disorder, recurrent F33.9 Anxiety F41.9
[2023-10-09 14:00] VITALS: BP 121/70; PULSE 74; RESP 16; TEMP 36.6; O2SAT 97
[2023-10-09] MEDS: trazodone 50 mg Tablet PO (20:23)
[2023-10-09 20:44] VITALS: BP 120/78; PULSE 76; RESP 18; TEMP 36.8; O2SAT 94
[2023-10-10 06:00] VITALS: BP 102/62; PULSE 55; RESP 17; O2SAT 98; BMI 26.4
[2023-10-10] MEDS: escitalopram 10 mg Tablet 20 MG PO (11:59)
[2023-10-10] MEDS: multivitamin therapeutic Tablet 1 TAB PO (11:59)
[2023-10-10] MEDS: folic acid 1 mg Tablet PO (11:59)
[2023-10-10] MEDS: thiamine 100 mg Tablet PO (12:00)
[2023-10-10 14:00] VITALS: BP 107/73; PULSE 75; RESP 20; TEMP 36.8; O2SAT 98
--- NOTE | 2023-10-10 14:22 | P.NPUPN_ITS ---
Subjective NPU 2 Subjective: Patient presented today reporting that he is feeling a little better. We once again had a very lengthy discussion about the finances that brought him here and explained the fact that given the significance of the events that he would need to stay while we filed for 21-day hold. He was not happy about that but we were able to have a conversation that but the situation and perspective and that he ultimately understood allowing us to end the conversation with clearer understanding and a hand shake. We discussed the episodes of suicidality again and it appears he is getting a better understanding of how the situations would look anyone who was forced to evaluate them without being inside his head. He continues to deny desire for medication. Mental Status Exam 2 MSE Comments: This is a slender white male in hospital scrubs with adequate grooming and eye contact. No abnormal movements except for psychomotor retardation. Cooperative with exam in mild to moderate distress. Speech was slightly decreased rate and volume. Mood described as okay but not liking being in here I do not belong here, affect subdued. Able to tolerate thought process organized. Thought content: He reports feeling good, but misunderstood. He denied suicidal or homicidal ideation, there were no delusions reported or noted, he denied any auditory or visual hallucinations. Attention and concentration appear intact and memory appears reliable but none were formally tested. He is alert and oriented x 3. Insight and judgment are limited and impulse control is impaired. Vitals/I&O/Wt Last Vital Signs Temp 98.3 F 10/09/23 20:44 Pulse 55 L 10/10/23 06:00 Resp 17 10/10/23 06:00 BP 102/62 10/10/23 06:00 Pulse Ox 98 10/10/23 06:00 O2 Del Method Room Air 10/10/23 06:00 10/09/23 10/10/23 10/10/23 22:59 06:59 14:59 Intake Total 120 / 120 Output Total 0 / 0 Balance 120 / 120 Weight last 48 hrs Weight 83.546 kg Weight 83.546 kg Data NPU 10/08/23 04:23 10/08/23 04:23 A&P Assessment and plan (1) Acute alcohol intoxication: (2) Suicidal ideation: (3) Suicide attempt: (4) Marital/partner relational problem: (5) Major depressive disorder, recurrent: (6) Anxiety: Plan This is a 33-year-old white male with a previous history of some mental health challenges going back to his parents divorce with question of concerns with his alcohol consumption and recent intentional ingestion which he denies a suicide attempt that led to medical clearance in the ICU who is experiencing significant emotional distress due to recent personal events, including marital issues and the of close family members. He has a history of mental health treatment and is currently on psychiatric medication. He is seeking help and is open to therapy. He has shown signs of suicidal ideation in the past and has taken a large amount of Valium, which is concerning and his recounting of the events in the past week that led to him being placed on a 96-hour hold are in vance contrast to the reports. 1. Continue current medication. Advised patient that continuation of Lexapro or some other antidepressant is recommended and that it appears that given his overdose and high alcohol consumption that Valium is a bad idea for anxiety treatment. 2. Continue every 15 minute checks for safety. 3. Encourage individual, group and milieu therapy. 4. Encourage sober living treatment after discharge at the highest level of care to which she is willing to commit. 5. Obtain collateral information. 6. After conversation with patient and preliminary review of the 96-hour hold paperwork for concerns about patient being dishonest about recent events make continuing the 96-hour hold and considering a 21-day hold recurrent treatment considerations. Patient told this technical report writer about taking his grandfather's ashes into the [place] but he left out the part about having a gun that had to be taken from him and other likely intentional omissions. 7. 21-day paperwork has been filed. Involuntary Hold Information 2 96 Hour Hold: 96 Hour Involuntary Admission: Yes 96 Hour Hold Ending Date: 10/10/23 96 Hour Hold Ending Time: 21:00 Attestations NPU 2 Medical Necessity Statement*: Inpatient hospitalization is medically necessary and the clinically appropriate intervention at this time. We will monitor medications and make changes as indicated. Likely length of stay 4-6 days. Coding Level of Care Code Acute Code for [facility] Fwd Diagnoses Acute alcohol intoxication F10.929 Suicidal ideation R45.851 Suicide attempt T14.91XA Marital/partner relational problem Z63.0 Major depressive disorder, recurrent F33.9 Anxiety F41.9
[2023-10-10 20:37] VITALS: BP 121/62; PULSE 83; RESP 18; O2SAT 98
[2023-10-10] MEDS: trazodone 50 mg Tablet PO (20:50)
[2023-10-10] MEDS: hyDROXYzine 25 mg Capsule 50 MG PO (22:51)
[2023-10-11 06:00] VITALS: BP 92/59; PULSE 69; RESP 16; O2SAT 97
[2023-10-11] MEDS: multivitamin therapeutic Tablet 1 TAB PO (09:13)
[2023-10-11] MEDS: folic acid 1 mg Tablet PO (09:13)
[2023-10-11] MEDS: thiamine 100 mg Tablet PO (09:13)
[2023-10-11] MEDS: escitalopram 10 mg Tablet 20 MG PO (09:13)
--- NOTE | 2023-10-11 11:26 | P.NPUPN_ITS ---
Subjective NPU 2 Subjective: Patient presented today reporting that he is doing okay. He still would prefer not being here and would love to get discharged sooner rather than later however he is accepting of the fact that he is here he knows about the 21-day hold and his hearing date on Friday. We began discussing the possibility that she might not have to go to the hearing but that we would take it a day at the time. He denied any side effects of the medication and has been taking his Lexapro without issue. He denies any side effects to the medication. Mental Status Exam 2 MSE Comments: This is a slender white male in hospital scrubs with adequate grooming and eye contact. No abnormal movements except for psychomotor retardation. Cooperative with exam in mild distress. Speech was slightly decreased rate and volume. Mood described as okay, affect subdued. Able to tolerate thought process organized. Thought content: He reports feeling good, but misunderstood. He denied suicidal or homicidal ideation, there were no delusions reported or noted, he denied any auditory or visual hallucinations. Attention and concentration appear intact and memory appears reliable but none were formally tested. He is alert and oriented x 3. Insight and judgment are limited and impulse control is impaired. Vitals/I&O/Wt Last Vital Signs Temp 98.2 F 10/10/23 14:00 Pulse 69 10/11/23 06:00 Resp 16 10/11/23 06:00 BP 92/59 10/11/23 06:00 Pulse Ox 97 10/11/23 06:00 O2 Del Method Room Air 10/11/23 06:00 Weight last 48 hrs Weight 83.546 kg Data NPU 10/08/23 04:23 10/08/23 04:23 A&P Assessment and plan (1) Acute alcohol intoxication: (2) Suicidal ideation: (3) Suicide attempt: (4) Marital/partner relational problem: (5) Major depressive disorder, recurrent: (6) Anxiety: Plan This is a 33-year-old white male with a previous history of some mental health challenges going back to his parents divorce with question of concerns with his alcohol consumption and recent intentional ingestion which he denies a suicide attempt that led to medical clearance in the ICU who is experiencing significant emotional distress due to recent personal events, including marital issues and the of close family members. He has a history of mental health treatment and is currently on psychiatric medication. He is seeking help and is open to therapy. He has shown signs of suicidal ideation in the past and has taken a large amount of Valium, which is concerning and his recounting of the events in the past week that led to him being placed on a 96-hour hold are in vance contrast to the reports. 1. Continue current medication. Advised patient that continuation of Lexapro or some other antidepressant is recommended and that it appears that given his overdose and high alcohol consumption that Valium is a bad idea for anxiety treatment. 2. Continue every 15 minute checks for safety. 3. Encourage individual, group and milieu therapy. 4. Encourage sober living treatment after discharge at the highest level of care to which she is willing to commit. 5. Obtain collateral information. 6. After conversation with patient and preliminary review of the 96-hour hold paperwork for concerns about patient being dishonest about recent events make continuing the 96-hour hold and considering a 21-day hold recurrent treatment considerations. Patient told this check writer salesperson about taking his grandfather's ashes into the [place] but he left out the part about having a gun that had to be taken from him and other likely intentional omissions. 7. 21-day hold hearing 10/14/2023 at 12 PM. Involuntary Hold Information 2 96 Hour Hold: 96 Hour Involuntary Admission: Yes 96 Hour Hold Ending Date: 10/10/23 96 Hour Hold Ending Time: 21:00 Attestations NPU 2 Medical Necessity Statement*: Inpatient hospitalization is medically necessary and the clinically appropriate intervention at this time. We will monitor medications and make changes as indicated. Likely length of stay 3-5 days. Coding Level of Care Code Acute Code for [facility] Fwd Diagnoses Acute alcohol intoxication F10.929 Suicidal ideation R45.851 Suicide attempt T14.91XA Marital/partner relational problem Z63.0 Major depressive disorder, recurrent F33.9 Anxiety F41.9
[2023-10-11 14:00] VITALS: BP 108/73; PULSE 73; RESP 20; TEMP 36.6; O2SAT 99
[2023-10-11] MEDS: hyDROXYzine 25 mg Capsule 50 MG PO (20:51)
[2023-10-11] MEDS: trazodone 50 mg Tablet PO (20:51)
[2023-10-11 22:00] VITALS: BP 115/69; PULSE 84; RESP 17; TEMP 36.8; O2SAT 98
[2023-10-12 06:00] VITALS: BP 117/74; PULSE 61; RESP 18; O2SAT 98
--- NOTE | 2023-10-12 07:36 | W.PM.NPUPNS ---
Subjective NPU Subjective: Patient presented today reporting that he is feeling fine. We were able to discuss his suicidal behavior with greater transparency and honesty. We discussed having transferred to Dr. Noe tomorrow, but it was a discussion about his hearing on Friday and whether or not a 21 day hold will still be necessary. He denied any side effects of the medication. Mental Status Exam MSE Comments: This is a slender white male in hospital scrubs with adequate grooming and eye contact. No abnormal movements except for psychomotor retardation. Cooperative with exam in mild distress. Speech was slightly decreased rate and volume. Mood described as better, affect subdued. Able to tolerate thought process organized. Thought content: He reports feeling good, but misunderstood. He denied suicidal or homicidal ideation, there were no delusions reported or noted, he denied any auditory or visual hallucinations. Attention and concentration appear intact and memory appears reliable but none were formally tested. He is alert and oriented x 3. Insight and judgment are limited and impulse control is impaired. Vitals/I&O/Wt Last Vital Signs Temp 98.2 F 10/11/23 22:00 Pulse 61 10/12/23 06:00 Resp 18 10/12/23 06:00 BP 117/74 10/12/23 06:00 Pulse Ox 98 10/12/23 06:00 O2 Del Method Room Air 10/12/23 06:00 Weight last 48 hrs Weight 79.832 kg Data NPU 10/08/23 04:23 10/08/23 04:23 A&P Assessment and plan (1) Acute alcohol intoxication: (2) Suicidal ideation: (3) Suicide attempt: (4) Marital/partner relational problem: (5) Major depressive disorder, recurrent: (6) Anxiety: Plan This is a 33-year-old white male with a previous history of some mental health challenges going back to his parents divorce with question of concerns with his alcohol consumption and recent intentional ingestion which he denies a suicide attempt that led to medical clearance in the ICU who is experiencing significant emotional distress due to recent personal events, including marital issues and the of close family members. He has a history of mental health treatment and is currently on psychiatric medication. He is seeking help and is open to therapy. He has shown signs of suicidal ideation in the past and has taken a large amount of Valium, which is concerning and his recounting of the events in the past week that led to him being placed on a 96-hour hold are in vance contrast to the reports. 1. Continue current medication. Advised patient that continuation of Lexapro or some other antidepressant is recommended and that it appears that given his overdose and high alcohol consumption that Valium is a bad idea for anxiety treatment. 2. Continue every 15 minute checks for safety. 3. Encourage individual, group and milieu therapy. 4. Encourage sober living treatment after discharge at the highest level of care to which she is willing to commit. 5. Obtain collateral information. 6. After conversation with patient and preliminary review of the 96-hour hold paperwork for concerns about patient being dishonest about recent events make continuing the 96-hour hold and considering a 21-day hold recurrent treatment considerations. Patient told this administrative underwriter about taking his grandfather's ashes into the [place] but he left out the part about having a gun that had to be taken from him and other likely intentional omissions. 7. 21-day hold hearing 10/14/2023 at 12 PM. Involuntary Hold Information 96 Hour Hold: 96 Hour Involuntary Admission: Yes 96 Hour Hold Ending Date: 10/10/23 96 Hour Hold Ending Time: 21:00 Attestations NPU Medical Necessity Statement*: Inpatient hospitalization is medically necessary and the clinically appropriate intervention at this time. We will monitor medications and make changes as indicated. Likely length of stay 2-4 days. Coding Level of Care Code Acute Code for [facility] Fwd Diagnoses Acute alcohol intoxication F10.929 Suicidal ideation R45.851 Suicide attempt T14.91XA Marital/partner relational problem Z63.0 Major depressive disorder, recurrent F33.9 Anxiety F41.9
[2023-10-12] MEDS: thiamine 100 mg Tablet PO (09:49)
[2023-10-12] MEDS: escitalopram 10 mg Tablet 20 MG PO (09:49)
[2023-10-12] MEDS: multivitamin therapeutic Tablet 1 TAB PO (09:49)
[2023-10-12] MEDS: folic acid 1 mg Tablet PO (09:49)
[2023-10-12 14:00] VITALS: BP 117/75; PULSE 87; RESP 20; TEMP 36.6; O2SAT 99
[2023-10-12 19:54] VITALS: BP 141/84; PULSE 91; RESP 18; TEMP 36.8; O2SAT 98
[2023-10-12] MEDS: hyDROXYzine 25 mg Capsule 50 MG PO (20:27)
[2023-10-12] MEDS: trazodone 50 mg Tablet PO (20:27)
[2023-10-12] MEDS: OLANZapine 5 mg ODT PO (20:58)
[2023-10-12] MEDS: haloperidol 5 mg Tablet PO (22:52)
[2023-10-13 06:00] VITALS: BP 94/54; PULSE 57; RESP 16; O2SAT 97
[2023-10-13] MEDS: multivitamin therapeutic Tablet 1 TAB PO (08:20)
[2023-10-13] MEDS: thiamine 100 mg Tablet PO (08:20)
[2023-10-13] MEDS: folic acid 1 mg Tablet PO (08:20)
[2023-10-13] MEDS: escitalopram 10 mg Tablet 20 MG PO (08:20)
[2023-10-13 14:00] VITALS: BP 109/66; PULSE 77; RESP 12; TEMP 36.6; O2SAT 97
--- NOTE | 2023-10-13 18:22 | P.NPUPN_ITS ---
Subjective NPU 2 Subjective: 33-year-old male admitted with depression and to separate suicide attempts. The patient had reported that he had previously been on antidepressants before and reported having severe stress that had been associated with his worsening depression. He had reported 2 previous episodes of depression in his lifetime and stated that the SSRIs had made him feel better initially but shortly afterwards had led to extreme depth of depression where he had felt suicidal. He had stated that the Lexapro that had been started a few weeks ago had also caused this same problem. He had reported that the addition of Valium had not been helpful for his mood but it helped with his chronic anxiety as he had described having frequent problems with controlling his worry. He had reported that he was no longer feeling suicidal and reported that he was trying to work out his issues with his marital partner. Mental Status Exam 2 MSE Comments: This is a slender white male in hospital scrubs with adequate grooming and eye contact. No abnormal movements except for mild psychomotor retardation. Cooperative with exam in mild distress. Speech was normal in rate and volume. Mood described as better, affect was restricted in range. His thought process was linear and organized. Thought content: He denied suicidal or homicidal ideation. There were no delusions reported or noted, he denied any auditory or visual hallucinations. Attention and concentration appear intact and memory appears reliable but none were formally tested. He is alert and oriented x 3. Insight and judgment are limited and impulse control appeared better. Vitals/I&O/Wt Last Vital Signs Temp 98 F 10/13/23 14:00 Pulse 77 10/13/23 14:00 Resp 12 10/13/23 14:00 BP 109/66 10/13/23 14:00 Pulse Ox 97 10/13/23 14:00 O2 Del Method Room Air 10/13/23 06:00 10/13/23 10/13/23 10/13/23 06:59 14:59 22:59 Intake Total 120 / 120 Output Total 0 / 0 Balance 120 / 120 Weight last 48 hrs Weight 79.832 kg Data NPU 10/08/23 04:23 10/08/23 04:23 A&P Assessment and plan (1) Acute alcohol intoxication: (2) Major depressive disorder, recurrent: (3) Suicidal ideation: (4) Suicide attempt: (5) Marital/partner relational problem: (6) Anxiety: Plan This is a 33-year-old white male with a previous history of some mental health challenges going back to his parents divorce with question of concerns with his alcohol consumption and recent intentional ingestion which he denies a suicide attempt that led to medical clearance in the ICU who is experiencing significant emotional distress due to recent personal events, including marital issues and the of close family members. He has a history of mental health treatment and is currently on psychiatric medication. He is seeking help and is open to therapy. He has shown signs of suicidal ideation in the past and has taken a large amount of Valium, which is concerning and his recounting of the events in the past week that led to him being placed on a 96-hour hold are in vance contrast to the reports. 1. Continue Lexapro with trial of Seroquel adjunctively for treating major depressive disorder. 2. Continue every 15 minute checks for safety. 3. Encourage individual, group and milieu therapy. 4. Encourage sober living treatment after discharge at the highest level of care to which she is willing to commit. 5. Obtain collateral information. 6. After conversation with patient and preliminary review of the 96-hour hold paperwork for concerns about patient being dishonest about recent events make continuing the 96-hour hold and considering a 21-day hold recurrent treatment considerations. Patient told this racebook writer about taking his grandfather's ashes into the [place] but he left out the part about having a gun that had to be taken from him and other likely intentional omissions. 7. Patient appears to be improving and will likely discharge tommorow. Involuntary Hold Information 2 96 Hour Hold: 96 Hour Involuntary Admission: Yes 96 Hour Hold Ending Date: 10/10/23 96 Hour Hold Ending Time: 21:00 Attestations NPU 2 Medical Necessity Statement*: Inpatient hospitalization is medically necessary and the clinically appropriate intervention at this time. We will monitor medications and make changes as indicated. Likely length of stay 1-2 days. Coding Level of Care Code Acute Code for [facility] Fwd Diagnoses Acute alcohol intoxication F10.929 Major depressive disorder, recurrent F33.9 Suicidal ideation R45.851 Suicide attempt T14.91XA Marital/partner relational problem Z63.0 Anxiety F41.9
[2023-10-13] MEDS: quetiapine 25 mg Tablet 50 MG PO (20:23)
[2023-10-13] MEDS: trazodone 50 mg Tablet PO (20:23)
[2023-10-13 21:19] VITALS: BP 128/64; PULSE 68; RESP 18; TEMP 36.4; O2SAT 98
[2023-10-14 06:00] VITALS: BP 100/54; PULSE 60; RESP 15; O2SAT 98
[2023-10-14] MEDS: thiamine 100 mg Tablet PO (08:16)
[2023-10-14] MEDS: escitalopram 10 mg Tablet 20 MG PO (08:16)
[2023-10-14] MEDS: multivitamin therapeutic Tablet 1 TAB PO (08:16)
[2023-10-14] MEDS: folic acid 1 mg Tablet PO (08:16)
--- NOTE | 2023-10-14 11:28 | P.NPUDS_ITS ---
Diagnoses at Discharge Discharge Diagnosis (1) Acute alcohol intoxication: Status: Acute (2) Major depressive disorder, recurrent: Status: Acute (3) Suicidal ideation: Status: Acute (4) Suicide attempt: Status: Acute (5) Marital/partner relational problem: Status: Acute (6) Anxiety: Status: Acute Reason for Visit Reason for Visit: overdose Brief History: History of Present Illness Malik Lacy is a 33 year old male who presented to the emergency department with the following report: Chief Complaint: ER Hold Stated Complaint: overdose Time Seen by Provider: 10/06/23 20:47 History of Present Illness: Patient presents to the ER via [facility] with complaints of taking 20 tabs of 5 mg Valium at approximately 1800. Patient says he also drank about 15-20 beers tonight. Patient says he drinks that every day and does not usually phase him. he does state I just wanted to forget about my life being turned upside down . Patient does appear sedate but is alert oriented and can answer questions. Poison control was consulted. His parents will be writing an affidavit to get him 96-hour held they said he tried this approximately week ago as well. They would prefer him to go to [facility] if possible. He was admitted to the ICU for definitive treatment of his intentional overdose. He was monitored in the ICU and medically cleared and transferred to the neuropsychiatric unit for definitive treatment of suicide attempt and evaluate for overarching mental health problems. He presents today as a questionable historian as he is very interested in being discharged soon as possible and appeared in general to be downplaying the events of the past week or so from the standpoint of possible suicide attempts and appearing to downplay the tenuous nature of his marriage as a risk factor for his behaviors. He presented today reporting: CHIEF COMPLAINT Patient reports difficulty sleeping, loss of appetite, and significant weight loss. He also mentions experiencing a state of shock and emotional distress due to recent personal events. HISTORY OF THE PRESENT COMPLAINT Malik, the patient, has been on psychiatric medication, specifically Lexapro and Diazepam, for the past couple of years. These medications were prescribed by his primary care doctor, Yoshi Hinojosa. Malik's current dosage is 20mg of Lexapro and 5mg of Diazepam three times a day. Malik has experienced several traumatic events in his life, including the loss of his best friend and cousin in a tragic accident in 2019 and the of his grandfather in 2019. These events have caused significant emotional turmoil, leading him to seek help. In 2020, he started taking medication prescribed by his doctor to help with his anxiety. Earlier this year, Malik's admitted to having an affair, which further exacerbated his emotional distress. He reported having trouble sleeping, losing weight, and experiencing a loss of appetite since this revelation. He also mentioned that he had been consuming more alcohol than usual and had taken a higher dose of Valium in an attempt to sleep. Malik denied any suicidal ideation or attempts, emphasizing his deep ranjana and commitment to his family. He reported that he had been seeking professional help, with appointments made for individual therapy. He also mentioned receiving infusions to help with his physical health. Despite the emotional turmoil, Malik described his current mood as good and denied any thoughts of self-harm or harm to others. He also denied experiencing any paranoia or hallucinations. Malik also mentioned that he had stopped taking his escitalopram medication since his admission to the psychiatric [facility] and reported feeling significantly better without it. He expressed a desire to leave the psychiatric ledes[facility] and denied any intention of self-harm. Malik also shared an incident where he took his grandfather's ashes to a specific location as per his grandfather's wishes. During this event, he expressed a longing to be with his grandfather, which he clarified was not a suicide attempt but a deep emotional response to his grandfather's passing. Malik expressed a willingness to have an open and honest dialogue about his situation and looked forward to further discussions about his condition and treatment. MENTAL HEALTH HISTORY Patient has been on psychiatric medication ( Negative Lexapro, Diazepam) for a couple of years, prescribed by his primary care doctor who has extended his studies in mental health. Patient has been on and off these medications, with dosage adjustments over time. He reports having been on different medications in the past due to side effects. He has been in therapy since high school and recently started therapy again due to personal issues. SOCIAL HISTORY Patient is a man with two children. He has a history of alcohol consumption, usually a few beers daily, but reports not drinking to intoxication. He uses tobacco products daily. He has a history of cannabis use in high school but reports it made him sick and he has not used it since. He denies use of cocaine, methamphetamines, opiates, mushrooms, LSD, or any other illicit substances. He has no history of DUI or DWI. He is very involved in his muslim and has a strong Ep[employer] ranjana. 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 Hospital Course Hospital Course During the hospitalization, the patient had routine laboratory studies which were within normal limits except for a few outliers.? Additionally, there was a general medical evaluation which was also within normal limits and revealed no new acute processes.? The patient had initially been guarded regarding his suicide attempts but was later able to describe and admitted to some of the stressors that had led to his serious suicide attempt. He had reported previously having problems with antidepressants but willingly restarted Lexapro to target chronic depression and anxiety. He was also agreeable to a trial of Seroquel to be used adjunctively to treat major depressive disorder and responded well on 50 mg at night with improved sleep and energy reported at the time of discharge. He was agreeable to an creasing the dose to 100 mg upon discharge on an outpatient basis and follow-up with a psychiatrist and psychotherapist. At the time of discharge, lethality was denied and psychosis was resolving.? Mood and anxiety were well managed.? The patient endorsed a plan to avoid all drugs of abuse and follow up with the aftercare recommendations of the treatment team.? The patient was evaluated and deemed to be absent credible lethality and had achieved the maximum benefit from an inpatient hospitalization, and so was discharged. ? Involuntary Hold Information 96 Hour Hold: 96 Hour Involuntary Admission: Yes 96 Hour Hold Ending Date: 10/10/23 96 Hour Hold Ending Time: 21:00 Mental Status Exam MSE Comments: This is a slender white male in hospital scrubs with adequate grooming and eye contact. No abnormal movements except for mild psychomotor retardation He was pleasant and cooperative with exam in no acute distress. Speech was normal in rate, rhythm and prosody. Mood described as better, affect was brighter on discharge. His thought process was linear and organized. Thought content: He denied suicidal or homicidal ideation. There were no delusions reported or noted, he denied any auditory or visual hallucinations. Attention and concentration appear intact and memory appears reliable but none were formally tested. He is alert and oriented x 3. Insight was improved and judgment appeared improved on discharge. His impulse control appeared better. Discharge Data Studies Completed and Pending: Completed Studies During Hospitalization Category Date Time Status XR chest 1V liang ble [id number] Stat Exams 10/06/23 20:54 Completed Radiology Impressions Chest X-Ray 10/06/23 20:54 IMPRESSION: No acute findings. Laboratory Results WBC 5.91 10^3/uL (3.2 9-11.43) 10/08/23 04:23 RBC 4.70 10^6/uL (3.8 5-5.65) 10/08/23 04:23 Hgb 15.30 g/dL (11.27 -16.99) 10/08/23 04:23 Hct 43.7 % (37-53) 10/08/23 04:23 MCV 93.0 fl (82-101) 10/08/23 04:23 MCH 32.6 pg (27-33) 10/08/23 04:23 MCHC 35.0 g/dL (30-55) 10/08/23 04:23 RDW 12.1 % (12.1-15.1 ) 10/08/23 04:23 Plt Count 208 10^3/cmm (157 -399) 10/08/23 04:23 MPV 10.7 fL (7.4-10.4 ) H 10/08/23 04:23 Neut % (Auto) 53.1 % 10/08/23 04:23 Lymph % (Auto) 38.9 % 10/08/23 04:23 [place] % (Auto) 4.4 % 10/08/23 04:23 Eos % (Auto) 2.9 % 10/08/23 04:23 Baso % (Auto) 0.5 % 10/08/23 04:23 Neut # (Auto) 3.14 10^3/uL (1.8 -7.7) 10/08/23 04:23 Lymph # (Auto) 2.3 10^3/uL (0.8- 4.8) 10/08/23 04:23 [place] # (Auto) 0.3 10^3/uL (0.2- 0.9) 10/08/23 04:23 Eos # (Auto) 0.2 10^3/uL (0.0- 0.8) 10/08/23 04:23 Baso # (Auto) 0.0 10^3/uL (0.0- 0.1) 10/08/23 04:23 Nucleated RBC % (a uto) 0 % 10/08/23 04:23 Nucleated RBCs # 0.0 /100WBC 10/08/23 04:23 PT 13.20 SECONDS (12 .1-14.9) 10/06/23 20:55 INR 0.98 (0.8-1.2) 10/06/23 20:55 Specimen Type Arterial 10/06/23 22:45 Sample Site Brachial, left 10/06/23 22:45 ABG pH 7.36 (7.35-7.45) 10/06/23 22:45 ABG pCO2 45.0 mmHg (35-45) 10/06/23 22:45 ABG pO2 74.6 mmHg (80.0-1 00.0) L 10/06/23 22:45 ABG PO2/FiO2 Ratio 0 10/06/23 22:45 ABG HCO3 25.4 mmol/L (22-2 6) 10/06/23 22:45 ABG O2 Saturation 95.7 10/06/23 22:45 ABG Base Excess -0.5 mmol/L (-2.0 -2.0) 10/06/23 22:45 Marvin Test N/a 10/06/23 22:45 A-a O2 Gradient 2.6 mmHg (5-10) L 10/06/23 22:45 Hematocrit 50.5 % (42-52) 10/06/23 22:45 Hgb O2 Saturation 94.1 % (95-100) L 10/06/23 22:45 Carboxyhemoglobin 1.1 %THgb (0.4-20 .1) 10/06/23 22:45 Methemoglobin 0.6 % (0.4-1.5) 10/06/23 22:45 Total Hemoglobin 16.5 g/dL (14-18) 10/06/23 22:45 Sodium 144.0 mmol/L (131 -143) H 10/06/23 22:45 Potassium 3.8 mmol/L (3.5-5 .0) 10/06/23 22:45 Glucose 82.0 mg/dL (70-11 5) 10/06/23 22:45 Ionized Calcium 1.2 mmol/L (1.1-1 .4) 10/06/23 22:45 O2 Delivery Device None 10/06/23 22:45 FiO2 21.0 % 10/06/23 22:45 Account Executive Key Accounts ID Yamelwe 10/06/23 22:45 Sodium 140 mmol/L (136-1 45) 10/08/23 04:23 Potassium 3.4 mmol/L (3.5-5 .1) L 10/08/23 04:23 Chloride 103 mmol/L (98-10 7) 10/08/23 04:23 Carbon Dioxide 24 mmol/L (22-29) 10/08/23 04:23 Anion Gap 16.4 (5-19) 10/08/23 04:23 BUN 11 mg/dL (6-20) 10/08/23 04:23 Creatinine 0.9 mg/dL (0.7-1. 2) 10/08/23 04:23 GFR Calculation 98.4 mL/min (90-1 30) 10/08/23 04:23 Glucose 82 mg/dL (65-115) 10/08/23 04:23 Calculated Osmolal ity 288 mOsm/kg (285- 295) 10/08/23 04:23 Calcium 8.5 mg/dL (8.5-10 .5) 10/08/23 04:23 Phosphorus 4.3 mg/dL (2.5-4. 5) 10/08/23 04:23 Magnesium 2.2 mg/dL (1.7-2. 3) 10/08/23 04:23 Total Bilirubin 1.1 mg/dL (0.15-1 .2) 10/08/23 04:23 AST 19 U/L (0-40) 10/08/23 04:23 ALT 34 U/L (0-41) 10/08/23 04:23 Alkaline Phosphata se 97 U/L (40-130) 10/08/23 04:23 C-Reactive Protein 3.0 mg/L (0.0-4.9 ) 10/08/23 04:23 Total Protein 6.1 g/dL (6.6-8.7 ) L 10/08/23 04:23 Albumin 3.8 g/dL (3.5-5.2 ) 10/08/23 04:23 Globulin 2.3 g/dL (1.3-4.6 ) 10/08/23 04:23 TSH 2.03 uIU/mL (0.27 -4.20) 10/06/23 20:55 Urine Color Light yellow (Ye llow) 10/06/23 20:55 Urine Appearance Clear (CLEAR) 10/06/23 20:55 Urine pH 5 (5-7) 10/06/23 20:55 Ur Specific Gravit y 1.010 (1.005-1.0 30) 10/06/23 20:55 Urine Protein Neg (Negative) 10/06/23 20:55 Urine Glucose (UA) Norm (Normal) 10/06/23 20:55 Urine Ketones Negative (Negati ve) 10/06/23 20:55 Urine Blood Neg (Negative) 10/06/23 20:55 Urine Nitrate Negative (Negati ve) 10/06/23 20:55 Urine Bilirubin Neg (Negative) 10/06/23 20:55 Urine Urobilinogen Norm mg/dL (Negat alvaro) 10/06/23 20:55 Ur Leukocyte Lynda ase Negative (Negati ve) 10/06/23 20:55 Salicylates < 0.3 mg/dL (3-10 ) L 10/06/23 20:55 Urine Opiates Scre en Negative ng/mL (N egative) 10/06/23 20:55 Acetaminophen < 5.0 ug/mL (10-3 0) L 10/06/23 20:55 Ur Barbiturates Sc reen Negative ng/mL (N egative) 10/06/23 20:55 Ur Phencyclidine S crn Negative ng/mL (N egative) 10/06/23 20:55 Ur Amphetamines Sc reen Negative ng/mL (N egative) 10/06/23 20:55 U Benzodiazepines Scrn Positive ng/mL (N egative) H 10/06/23 20:55 Urine Cocaine Scre en Negative ng/mL (N egative) 10/06/23 20:55 U Marijuana (THC) Screen Negative ng/mL (N egative) 10/06/23 20:55 Ethyl Alcohol 62 mg/dL (0-10) H 10/06/23 20:55 Vitals: Last Vital Signs Temp 97.5 F L 10/13/23 21:19 Pulse 60 10/14/23 06:00 Resp 15 10/14/23 06:00 BP 100/54 10/14/23 06:00 Pulse Ox 98 10/14/23 06:00 O2 Del Method Room Air 10/13/23 21:19 Discharge Plan Discharge Patient Disposition: Home Condition: Stable Prescriptions: New quetiapine 100 mg Tablet 100 mg PO BEDTIME 30 Days Qty: 30 1RF Vitamin B-1 (mononitrate) 100 mg Tablet 100 mg PO DAILY 30 Days Qty: 30 1RF Continued escitalopram oxalate 20 mg tablet 20 mg PO DAILY 30 Days Qty: 30 1RF No Action diazepam 5 mg tablet 5 mg PO QAM PRN (Reason: anxiety) Qty: 30 0RF Discharge Orders: Discharge Order (Routine); Ordered 10/14/23 Ordered By: Chencho Noe Referrals: [facility] [Other] - 10/22/23 2:00 pm (Arrive 15 minutes early for appointment with Alisson Payton) [facility] [Outside] - 10/21/23 1:30 pm (Initial assessment for services with [facility]) Yoshi Sims, [Primary Care Provider] - Discharge Diet: Usual diet Discharge Activity: Resume usual activity Patient Instructions: Generalized Anxiety Disorder, Depression, Quetiapine (By mouth), Opioid Safety Discharge Attestations NPU Time Spent in Discharge Care*: less than 30 min Specific Discharge Activities: Specific discharge activities: educating patient and documenting/other paperwork Coding Level of Care Code Acute Code for Chg Fwd Diagnoses Acute alcohol intoxication F10.929 Major depressive disorder, recurrent F33.9 Suicidal ideation R45.851 Suicide attempt T14.91XA Marital/partner relational problem Z63.0 Anxiety F41.9
[2023-10-14 11:42] VITALS: BP 100/54; PULSE 60; RESP 15; O2SAT 98
== END 2023-10-14 12:00 | disposition home or self-care (01) | DRG 918 ==
LOC: ER 21:08 → ICU 10-07 05:39 → NP 10-08 10:41
PROVIDERS: Admitting Provider Internal Medicine; Emergency Provider Emergency Medicine; PCP Family Medicine; Visit Provider Psychiatry & Neurology Psychiatry
DX: T42.4X2A Poisoning by benzodiazepines, intentional self-harm, initial encounter (principal); F33.9 Major depressive disorder, recurrent, unspecified; Y99.9 Unspecified external cause status; F41.9 Anxiety disorder, unspecified; Z63.0 Problems in relationship with spouse or partner; F10.129 Alcohol abuse with intoxication, unspecified; Y90.3 Blood alcohol level of 60-79 mg/100 ml
CPT/HCPCS: 36415; 36600; 71045; 80051; 80053; 80306; 80307; 81003; 82330; 82805; 83735; 84100; 84443; 85025; 85610; 86140; 96372; 97150; 97165; J1650; J3411; J7030

== ENCOUNTER → 2025-04-05 09:21 | Outpatient (BNVA) | payer OTHER, SELFPAY | PROVIDERS: PCP Family Medicine; Visit Provider Family Medicine | DX: F33.9 Major depressive disorder, recurrent, unspecified (principal); F41.9 Anxiety disorder, unspecified; R68.82 Decreased libido; R79.89 Other specified abnormal findings of blood chemistry | CPT/HCPCS: 80053; 82040; 82607; 84270; 84403; 84436; 84443; 84481; 85025 ==